=== PATIENT | male | born 1960 | race Caucasian/White ===

== ENCOUNTER 2016-09-02 19:10 | Emergency (ER) | payer OTHER, SELFPAY ==
[2016-09-02 19:45] LABS: BASOPHIL 0.3 % (0-2); EOSINOPHIL 0.1 % (0-5); HCT 46.6 % (42.0-52.0); HGB 16.9 g/dl (13.2-18.0); LYMPHOCYTE 17.7 % (15-48); MCH 33.6 pg (25.0-31.0); MCHC 36.3 g/dL (32.0-36.0); MCV 92.6 fL (78.0-100.0); MPV 10.2 fL (6.0-9.5); NEUTROPHIL 71.9 % (41-80); PLT 236 K/uL (150-400); RBC 5.03 M/uL (4.70-6.00); RDW 12.5 % (11.5-14.0)
[2016-09-02 19:48] LABS: WBC 13.5 K/uL (4.0-10.5)
[2016-09-02 19:50] LABS: BILIRUBIN NEGATIVE (NEGATIVE); BLOOD NEGATIVE Ery/uL (NEGATIVE); CLARITY CLEAR (CLEAR); COLOR YELLOW (YELLOW); GLUCOSE (U) NORMAL (NORMAL); KETONE (U) NEGATIVE (NEGATIVE); LEUKOCYTES NEGATIVE Leu/uL (NEGATIVE); NITRITE NEGATIVE (NEGATIVE); PROTEIN NEGATIVE (NEGATIVE); UROBILINOGEN 0.2 mg/dL (0.2-1.0)
[2016-09-02 19:51] LABS: PTT 26.2 SECONDS (23.2-31.4)
[2016-09-02 19:52] LABS: INR 0.98 (0.9-1.2); PROTHROMBIN TIME 12.6 SECONDS (11.7-14.0)
[2016-09-02 20:00] LABS: ALBUMIN 4.7 g/dL (3.5-5.0); BILIRUBIN - TOTAL 0.4 mg/dL (0.1-1.0); CREATININE 0.9 mg/dL (0.7-1.2); POTASSIUM 3.9 mmol/L (3.5-5.1); TOTAL PROTEIN 7.7 g/dL (6.4-8.3)
[2016-09-02 20:01] LABS: CKMB 3.74 ng/mL (0.97-4.94); MYOGLOBIN 65 ng/mL (26-65); TROPONIN T < 0.010 ng/mL
[2016-09-02 20:06] LABS: AMPHETAMINES NEGATIVE (NEGATIVE); BARBITURATES NEGATIVE (NEGATIVE); BENZODIAZEPINES NEGATIVE (NEGATIVE); COCAINE NEGATIVE (NEGATIVE); MARIJUANA (THC) NEGATIVE (NEGATIVE); TRICYCLIC ANTIDEPRESSANT NEGATIVE (NEGATIVE)
[2016-09-02 20:07] LABS: METHADONE NEGATIVE (NEGATIVE)
== END 2016-09-02 23:15 | disposition other institution (70) ==
LOC: FER 19:10
PROVIDERS: Emergency Medicine Emergency Medical Services
DX: M62.81 Muscle weakness (generalized) (principal); I10 Essential (primary) hypertension; R51 Headache; R42 Dizziness and giddiness; R55 Syncope and collapse; K21.9 Gastro-esophageal reflux disease without esophagitis; Z79.899 Other long term (current) drug therapy
CPT/HCPCS: 36415; 70450; 71010; 80053; 80061; 80305; 81003; 82550; 82553; 83874; 84484; 85025; 85610; 85730; 93005; G0480

== ENCOUNTER → 2020-07-23 | Day surgery (SDC) | payer OTHER ==
[~2020-07-23] MED LIST: ALPRAZOLAM 1MG T1 MG PO; ASPIRIN EC81 MG PO; BENADRYL25 MG PO; BREO ELLIPTA 11 EACH INH; FENOFIBRATE145 MG PO; OMEPRAZOLE40 MG PO; PRINIVIL20 MG PO; VENTOLIN HFA IN18 GM INH; ZOCOR40 MG PO
[2020-07-23 09:13] LABS: HCT 45.9 % (42.0-52.0); HGB 16.4 g/dl (13.2-18.0); MCH 34.2 pg (25.0-31.0); MCHC 35.7 g/dL (32.0-36.0); MCV 95.6 fL (78.0-100.0); MPV 10.7 fL (6.0-9.5); RBC 4.8 M/uL (4.70-6.00); RDW 12.6 % (11.5-14.0); WBC 8.5 K/uL (4.0-10.5)
[2020-07-23 09:39] LABS: ALBUMIN 4.1 g/dL (3.4-5.0); BILIRUBIN - TOTAL 0.9 mg/dL (0.2-1.0); BUN/CREAT RATIO (CALC) 13.9 RATIO; CREATININE 0.79 mg/dL (0.67-1.17); GLOBULIN (CALCULATION) 3.7 g/dL; TOTAL PROTEIN 7.8 g/dL (6.4-8.2)
== END | disposition home or self-care (01) ==
LOC: FAS 08:09
PROVIDERS: Surgery
DX: K21.9 Gastro-esophageal reflux disease without esophagitis (principal); Z12.11 Encounter for screening for malignant neoplasm of colon; D12.3 Benign neoplasm of transverse colon; K57.30 Diverticulosis of large intestine without perforation or abscess without bleeding; K42.0 Umbilical hernia with obstruction, without gangrene; K64.9 Unspecified hemorrhoids; K29.70 Gastritis, unspecified, without bleeding; I10 Essential (primary) hypertension; Z79.899 Other long term (current) drug therapy; Z87.891 Personal history of nicotine dependence; Z20.822 Contact with and (suspected) exposure to COVID-19
CPT/HCPCS: 36415; 80053; J1610; J2704; J7120

== ENCOUNTER → 2021-07-29 | Day surgery (SDC) | payer OTHER ==
[~2021-07-29] VITALS: Ht 170.2 cm; Wt 87.1 kg
[~2021-07-29] MED LIST changes: +ALEVE220 MG PO; +NORCO 5-325 TA1 EACH PO; +ONDANSETRON ODT8 MG PO
[2021-07-29 09:27] LABS: HCT 46.4 % (42.0-52.0); HGB 16.1 g/dl (13.2-18.0); MCH 32.5 pg (25.0-31.0); MCHC 34.7 g/dL (32.0-36.0); MCV 93.5 fL (78.0-100.0); MPV 10.7 fL (6.0-9.5); RBC 4.96 M/uL (4.70-6.00); RDW 12.7 % (11.5-14.0); WBC 6.4 K/uL (4.0-10.5)
[2021-07-29 09:44] LABS: ALBUMIN 4.7 g/dL (3.4-5.0); BILIRUBIN - TOTAL 0.5 mg/dL (0.2-1.0); BUN/CREAT RATIO (CALC) 29.7 RATIO; CREATININE 0.74 mg/dL (0.67-1.17); GLOBULIN (CALCULATION) 3.1 g/dL; POTASSIUM 3.8 mmol/L (3.5-5.1); TOTAL PROTEIN 7.8 g/dL (6.4-8.2)
== END | disposition home or self-care (01) ==
LOC: FAS 08:38
PROVIDERS: Surgery
DX: K42.0 Umbilical hernia with obstruction, without gangrene (principal); E78.5 Hyperlipidemia, unspecified; I10 Essential (primary) hypertension; E11.9 Type 2 diabetes mellitus without complications; Z87.891 Personal history of nicotine dependence; Z79.82 Long term (current) use of aspirin; Z79.899 Other long term (current) drug therapy
CPT/HCPCS: 36415; 80053; 93005; J0690; J1170; J2250; J2405; J2704; J3010; J7120